=== PATIENT | female | born 1980 | race African-American/Black ===

== ENCOUNTER 2020-09-06 13:11 | Observation (INO) | payer SELFPAY ==
[~2020-09-06] VITALS: Ht 144.8 cm; Wt 72.6 kg
[2020-09-06] MEDS ORDERED: PREN-96 PO (14:18)
[2020-09-06] MEDS ORDERED: OMEP20TA PO (14:18)
== END 2020-09-06 16:20 | disposition home or self-care (01) ==
LOC: LDRP 13:11
PROVIDERS: ADMIT Specialist; ATTEND Specialist
DX: O99.413 Diseases of the circulatory system complicating pregnancy, third trimester (principal); R07.9 Chest pain, unspecified; Z3A.32 32 weeks gestation of pregnancy
CPT/HCPCS: 59025; 76805; 76818; 81002; G0378

== ENCOUNTER → 2020-09-15 | Outpatient (CLI) | payer SELFPAY ==
[~2020-09-15] MED LIST: OMEP20TA PO; PREN-96 PO
== END | disposition home or self-care (01) ==
LOC: OB 13:42
PROVIDERS: ATTEND Specialist
DX: O09.93 Supervision of high risk pregnancy, unspecified, third trimester (principal); Z3A.34 34 weeks gestation of pregnancy
CPT/HCPCS: 76805

== ENCOUNTER 2020-10-07 10:50 | Inpatient (IN) | payer MEDICAID ==
[2020-10-07] VITALS (7 sets, daily range): BP systolic 109–135; BP diastolic 61–74
[~2020-10-07] VITALS: Ht 30.5 cm; Wt 0.5 kg
[2020-10-07] MEDS ORDERED: ceFAZolin 1GM/50ML 50 ML IV ONE (11:02)
[2020-10-07] MEDS ORDERED: CLINDAMYCIN 900MG IV 50 ML IV ONE (11:15)
[2020-10-07] MEDS ORDERED: LACTATED RINGER'S 1,000 ML IV SCH (11:15)
[2020-10-07] MEDS ORDERED: LACTATED RINGER'S 1,000 ML IV ONE (11:15)
[2020-10-07 11:39] LABS: Basophils # (auto) 0 10 ^3/uL (0-0.2); Eosinophils # (auto) 0 10 ^3/uL (0-0.8); Eosinophils % (auto) 0.2 % (0.0-7.0); Monocytes # (auto) 0.5 10 ^3/uL (0-1.3)
[2020-10-07 11:41] LABS: Basophils % (auto) 0.4 % (0.0-2.0); Hematocrit 31.9 % (36.0-46.0); Hemoglobin 11.5 g/dL (12.2-16.2); Lymphocytes # (auto) 1.4 10 ^3/uL (0.4-5.4); Lymphocytes % (auto) 25.2 % (10.0-50.0); Mean Corpuscular Hemoglobin 24.9 pg (28.0-32.0); Mean Corpuscular Hgb Conc. 35.9 g/dL (32.0-36.0); Mean Corpuscular Volume 69.4 fL (80.0-100.0); Monocytes % (auto) 8.6 % (0.0-12.0); Neutrophils # (auto) 3.6 10 ^3/uL (1.6-8.6); Neutrophils % (auto) 65.6 % (37.0-80.0); Nucleated Red Blood Cells % 0.3 %; Platelet Count (auto) 248 10^3/uL (140-450); White Blood Cell 5.5 10^3/uL (4.4-10.8)
[2020-10-07] MEDS ORDERED: BETAMETHASONE ACET (6MG/ML) 5ML VIAL IM ONE (11:45)
[2020-10-07 11:56] LABS: INR 0.97 (0.9-1.15); Partial Thromboplastin Time 28.2 sec (23.0-31.2)
[2020-10-07 12:09] LABS: Albumin 2.8 g/dL (3.4-5.0); Calcium 9.1 mg/dL (8.5-10.1); Potassium 3.9 mmol/L (3.5-5.1)
[2020-10-07 12:12] LABS: BUN/Creatinine Ratio 14.6; Bilirubin, Total 0.2 mg/dL (0.2-1.0); Total Protein 7.5 g/dL (6.4-8.2)
[2020-10-07 12:17] LABS: Urine Bacteria NONE SEEN /hpf (None Seen); Urine Blood TRACE /uL (Negative); Urine Mucus FEW (None Seen); Urine Specific Gravity 1.026 (1.001-1.035); Urine WBC 3 /hpf (0 - 5)
[2020-10-07] MEDS ORDERED: TERBUTALINE SULFATE 1 MG/ML 1ML VIAL SC ONE (13:02)
[2020-10-07 13:28] LABS: Amphetamine Screen, Urine NEGATIVE (NEGATIVE); Barbiturate Scree,Urine NEGATIVE (NEGATIVE); Benzodiazephine Screen, Urine NEGATIVE (NEGATIVE); Cannabinoid Screen, Urine NEGATIVE (NEGATIVE); Cocaine Screen, Urine NEGATIVE (NEGATIVE); Opiate Scree,Urine NEGATIVE (NEGATIVE); Phencyclidine Screen, Urine NEGATIVE (NEGATIVE)
[2020-10-07] MEDS: TERBUTALINE SULFATE 1 MG/ML 1ML VIAL SC SCH (13:30)
[2020-10-07] MEDS ORDERED: TETRACAINE 1% INJ 2 ML VIAL IJ ONE (13:34)
[2020-10-07] MEDS ORDERED: MORPHINE SULF(PF) 0.5MG/ML 10ML VIAL ONE (13:44)
[2020-10-07] MEDS ORDERED: ePHEDrine SULFATE 50 MG/ML AMP ONE (13:45)
[2020-10-07] MEDS ORDERED: PHENYLEPHRINE HCL 10 MG/ML VL ONE (13:45)
[2020-10-07] MEDS ORDERED: oxyTOCIN 10 UNIT/ML 10ML VIAL ONE (13:47)
[2020-10-07] MEDS ORDERED: SUCCINYLCHOLINE CHLORIDE 20 MG/ML 10ML VIAL IV ONE (13:59)
[2020-10-07] MEDS ORDERED: PROPOFOL 10 MG/ML 20 ML IV ONE (14:00)
[2020-10-07] MEDS ORDERED: miSOPROStol 100 mcg TAB ONE (14:02)
[2020-10-07] MEDS ORDERED: METHYLERGONOVINE MALEATE 0.2 MG/ML AMP IM ONE (14:03)
[2020-10-07] MEDS ORDERED: CARBOPROST TROMETHAMINE 250 MCG/1ML VIAL IM ONE (14:03)
[2020-10-07] MEDS ORDERED: ROCURONIUM 10MG/ML 10ML VIAL IV ONE (14:10)
[2020-10-07] MEDS ORDERED: MORPHINE SULFATE 4 MG/ML SYR/VIAL IV PRN (14:45)
[2020-10-07] MEDS ORDERED: LACT. RINGERS/OXYTOCIN 20UNITS 1,000 ML IV ONE (14:45)
[2020-10-07] MEDS ORDERED: GUM (CHEWING) 1 GUM CHEW CHEW ONE (14:45)
[2020-10-07] MEDS ORDERED: ONDANSETRON HCL 4 MG/2 ML VIAL IV PRN ×2 (14:45→15:15)
[2020-10-07] MEDS ORDERED: NEOSTIGMINE 1 MG/ML INJ (10mg/10ML VIAL) ONE (14:48)
[2020-10-07] MEDS ORDERED: GLYCOPYRROLATE 0.2 MG/ML 1ML VIAL ONE (14:48)
[2020-10-07] MEDS ORDERED: HYDROmorphone HCL 2 MG/ML VL ONE (14:59)
[2020-10-07] MEDS ORDERED: HYDROmorphone HCL 2 MG/ML VL IV ONE ×2 (15:05→15:21)
[2020-10-07] MEDS ORDERED: METOCLOPRAMIDE HCL 5MG/ml INJ 2ml VIAL IV PRN (15:15)
[2020-10-07] MEDS ORDERED: HYDROmorphone HCL 2 MG/ML VL IV PRN ×2 (15:15)
[2020-10-07] MEDS ORDERED: NALOXONE HCL 0.4 MG/ML VIAL IV PRN (15:15)
[2020-10-07] MEDS: ceFAZolin 1GM/50ML 50 ML IV SCH (19:17)
[2020-10-07 22:22] LABS: Basophils # (auto) 0.1 10 ^3/uL (0-0.2); Basophils % (auto) 0.7 % (0.0-2.0); Lymphocytes % (auto) 6.6 % (10.0-50.0); Monocytes # (auto) 0.4 10 ^3/uL (0-1.3)
[2020-10-07 22:24] LABS: Eosinophils # (auto) 0.1 10 ^3/uL (0-0.8); Eosinophils % (auto) 0.9 % (0.0-7.0); Hematocrit 29.7 % (36.0-46.0); Hemoglobin 10.3 g/dL (12.2-16.2); Mean Corpuscular Hemoglobin 24.8 pg (28.0-32.0); Mean Corpuscular Hgb Conc. 34.6 g/dL (32.0-36.0); Mean Corpuscular Volume 71.6 fL (80.0-100.0); Monocytes % (auto) 2.7 % (0.0-12.0); Neutrophils # (auto) 13.9 10 ^3/uL (1.6-8.6); Neutrophils % (auto) 89.1 % (37.0-80.0); Nucleated Red Blood Cells % 0.4 %; Platelet Count (auto) 222 10^3/uL (140-450); Red Blood Cells 4.15 10^6/uL (4.0-5.20); Red Cell Distribution Width 16.9 % (11.8-14.3); White Blood Cell 15.5 10^3/uL (4.4-10.8)
[2020-10-08] MEDS ORDERED: ACETAMINOPHEN IV 1000 MG/100ML (10MG/ML) IV PRN (01:15)
[2020-10-08 03:00] VITALS: BP 124/61
[2020-10-08 03:07] LABS: Rubella Antibodies, IgG 12.5 index (Immune >0.99)
[2020-10-08] MEDS: ceFAZolin 1GM/50ML 50 ML IV SCH ×2 (03:52→11:42)
[2020-10-08 05:06] LABS: RPR Non Reactive (Non Reactive)
[2020-10-08 07:00] VITALS: BP 115/71
[2020-10-08 10:53] LABS: Basophils # (auto) 0 10 ^3/uL (0-0.2); Basophils % (auto) 0.1 % (0.0-2.0); Eosinophils # (auto) 0 10 ^3/uL (0-0.8); Lymphocytes # (auto) 0.9 10 ^3/uL (0.4-5.4); Mean Corpuscular Hemoglobin 24.5 pg (28.0-32.0); Red Cell Distribution Width 16.9 % (11.8-14.3)
[2020-10-08 10:54] LABS: Hematocrit 28.5 % (36.0-46.0); Lymphocytes % (auto) 6.7 % (10.0-50.0); Mean Corpuscular Hgb Conc. 35.2 g/dL (32.0-36.0); Mean Corpuscular Volume 69.7 fL (80.0-100.0); Monocytes # (auto) 0.8 10 ^3/uL (0-1.3); Monocytes % (auto) 5.8 % (0.0-12.0); Neutrophils # (auto) 11.9 10 ^3/uL (1.6-8.6); Neutrophils % (auto) 87.4 % (37.0-80.0); Nucleated Red Blood Cells % 0.1 %; Platelet Count (auto) 260 10^3/uL (140-450); Red Blood Cells 4.08 10^6/uL (4.0-5.20); White Blood Cell 13.6 10^3/uL (4.4-10.8)
[2020-10-08 11:00] VITALS: BP 123/73
[2020-10-08] MEDS ORDERED: ceFAZolin 1GM/50ML 50 ML IV ONE (11:36)
[2020-10-08] MEDS ORDERED: BISACODYL 10 MG RECT SUPP PR PRN (11:45)
[2020-10-08] MEDS ORDERED: HYDROcodone-ACET 5/325MG TAB PO PRN ×2 (11:45)
[2020-10-08] MEDS: SIMETHICONE 80 MG CHEWABLE TABLET PO SCH ×3 (12:15→22:07)
[2020-10-08] MEDS: IBUPROFEN 800 MG TAB PO PRN (12:15)
[2020-10-08 15:00] VITALS: BP 115/76
[2020-10-08 19:30] VITALS: BP 117/72
[2020-10-08] MEDS: DOCUSATE SOD 100 MG CAP PO SCH (22:07)
[2020-10-08 22:48] VITALS: BP 119/97
[2020-10-09 03:00] VITALS: BP 111/59
[2020-10-09] MEDS: SIMETHICONE 80 MG CHEWABLE TABLET PO SCH ×4 (05:39→22:33)
[2020-10-09 07:30] VITALS: BP 151/76
[2020-10-09] MEDS: DOCUSATE CALCIUM 240 MG CAP PO SCH (09:56)
[2020-10-09] MEDS: DOCUSATE SOD 100 MG CAP PO SCH ×2 (09:56→22:33)
[2020-10-09 11:00] VITALS: BP 123/73
[2020-10-09] MEDS: IBUPROFEN 800 MG TAB PO PRN (12:18)
[2020-10-09 15:00] VITALS: BP 116/78
[2020-10-09 19:30] VITALS: BP 113/74
[2020-10-09 23:00] VITALS: BP 115/67
[2020-10-10 03:00] VITALS: BP 118/71
[2020-10-10] MEDS ORDERED: SIMETHICONE 80 MG CHEWABLE TABLET ONE (05:54)
[2020-10-10] MEDS: SIMETHICONE 80 MG CHEWABLE TABLET PO SCH (06:03)
[2020-10-10 07:30] VITALS: BP 131/81
[2020-10-10] MEDS: DOCUSATE CALCIUM 240 MG CAP PO SCH (10:16)
[2020-10-10] MEDS: DOCUSATE SOD 100 MG CAP PO SCH (10:16)
[2020-10-10 10:30] VITALS: BP 116/74
== END 2020-10-10 11:00 | disposition home or self-care (01) | DRG 540 ==
LOC: LDRP 10:50 → OBSVTOIN 10:50 → LDRP 14:40
PROVIDERS: ADMIT Obstetrics & Gynecology; ATTEND Obstetrics & Gynecology
PROC: 10D00Z1 Extraction of Products of Conception, Low, Open Approach (ICD-10-PCS; principal; 2020-10-07 13:56)
DX: O60.14X0 Preterm labor third trimester with preterm delivery third trimester, not applicable or unspecified (principal); O34.219 Maternal care for unspecified type scar from previous cesarean delivery; Z37.0 Single live birth; Z3A.37 37 weeks gestation of pregnancy; O09.523 Supervision of elderly multigravida, third trimester; O69.81X0 Labor and delivery complicated by cord around neck, without compression, not applicable or unspecified; Z20.822 Contact with and (suspected) exposure to COVID-19; Z88.8 Allergy status to other drugs, medicaments and biological substances
CPT/HCPCS: 36415; 59025; 80053; 80307; 81001; 81002; 84550; 85025; 85610; 85730; 86592; 86703; 86762; 86850; 86900; 86901; 87340; 87426; 94762; 96360; 96361; 96365; 96366; 96372; G0378; J0131; J0330; J0690; J2405; J2590; J2704; J3490